=== PATIENT | male | born 1940 | race Asian ===

== ENCOUNTER → 2018-11-11 | Outpatient (CLI) | payer OTHER | END | disposition home or self-care (01) | LOC: PCVCCLINIC 14:43 | PROVIDERS: ATTEND Internal Medicine Cardiovascular Disease | DX: I25.10 Atherosclerotic heart disease of native coronary artery without angina pectoris (principal); I48.0 Paroxysmal atrial fibrillation; I10 Essential (primary) hypertension; R60.9 Edema, unspecified; Z79.82 Long term (current) use of aspirin; Z87.891 Personal history of nicotine dependence | CPT/HCPCS: 93005; G0463 ==

== ENCOUNTER → 2018-11-11 | Outpatient (CLI) | payer OTHER ==
--- NOTE | 2018-11-11 16:14 | PCVCIMAG ---
APPROVED REPORT Study performed: 11/11/2018 15:11:34 EXAM: Comprehensive 2D, Doppler, and color-flow Echocardiogram Patient Location: Echo lab Status: routine BSA: 1.93 HR: 63 bpmBP: 115/50 mmHg Rhythm: NSR Other Information Study Quality: Technically Difficult Indications CAD Hypertension/HDD Paroxysmal atrial fib. Edema 2D Dimensions IVSd: 11.58 (7-11mm)LVOT Diam: 23.18 (18-24mm) LVDd: 43.92 mm PWd: 12.19 (7-11mm)Ascending Ao: 33.68 (22-36mm) LVDs: 28.30 (25-40mm) Left Atrium: 41.08 (27-40mm) Aortic Root: 28.75 mm LV Single Plane 2CH: 49.90 % Volumes Left Atrial Volume (Systole) Single Plane 4CH: 38.08 mLSingle Plane 2CH: 41.70 mL LA ESV Index: 22.00 mL/m2 Aortic Valve AoV Peak Dane.: 1.67 m/s AO Peak Gr.: 11.12 mmHgLVOT Max P.27 mmHg LVOT Max V: 1.52 m/s KALIA Vmax: 3.85 cm2 Mitral Valve E/A Ratio: 0.6 MV Decel. Time: 260.30 ms MV E Max Dane.: 0.58 m/s MV A Dane.: 1.01 m/s Pulmonary Valve PV Peak Gr.: 2.25 mmHg Pulmonary Vein P Vein S: 0.42 m/sP Vein A: 0.28 m/s P Vein D: 0.33 m/sP Vein A Dur.: 107.3 msec P Vein S/D Ratio: 1.27 Tricuspid Valve TR Peak Dane.: 2.34 m/s TR Peak Gr.: 21.93 mmHg Left Ventricle The left ventricle is normal size. There is normal LV segmental wall motion. There is normal left ventricular wall thickness. Left ventricular systolic function is normal. The left ventricular ejection fraction is within the normal range. LVEF is 55%. Grade I - abnormal relaxation pattern. Right Ventricle The right ventricle is normal size. The right ventricular systolic function is normal. Atria The left atrium size is normal. The right atrium size is normal. Aortic Valve The aortic valve is normal in structure. Mild to moderate aortic regurgitation. There is no aortic valvular stenosis. Mitral Valve The mitral valve is normal in structure. There is no mitral valve regurgitation noted. No evidence of mitral valve stenosis. Tricuspid Valve The tricuspid valve is normal in structure. Trace tricuspid regurgitation. Pulmonary artery pressure is 29mmHg. Pulmonic Valve The pulmonary valve is normal in structure. There is no pulmonic valvular regurgitation. Great Vessels The aortic root is normal in size. IVC is normal in size and collapses >50% with inspiration. Pericardium There is no pericardial effusion. <Conclusion> The left ventricle is normal size. There is normal left ventricular wall thickness. Left ventricular systolic function is normal. Grade I - abnormal relaxation pattern. The right ventricle is normal size. The left atrium size is normal. Mild to moderate aortic regurgitation. There is no mitral valve regurgitation noted. Trace tricuspid regurgitation. Pulmonary artery pressure is 29mmHg.
== END | disposition home or self-care (01) ==
LOC: PCVCIMAG 08:00
PROVIDERS: ATTEND Internal Medicine Cardiovascular Disease
DX: I35.1 Nonrheumatic aortic (valve) insufficiency (principal); I25.10 Atherosclerotic heart disease of native coronary artery without angina pectoris; I10 Essential (primary) hypertension; I48.0 Paroxysmal atrial fibrillation; R60.0 Localized edema; R06.09 Other forms of dyspnea; Z86.39 Personal history of other endocrine, nutritional and metabolic disease
CPT/HCPCS: 93306